=== PATIENT | male | born 1965 | race Caucasian/White ===

== ENCOUNTER 2017-06-07 14:30 | Emergency (ER) | payer MEDICAID, SELFPAY ==
[2017-06-07] VITALS (7 sets, daily range): BP systolic 122–132; BP diastolic 82–96; PULSE 62–86; RESP 13–21; TEMP 37.1; O2SAT 92–96; BMI 36.0
--- NOTE | 2017-06-07 15:15 | EKG12_ITS ---
Test Reason : SEIZURES Blood Pressure : / mmHG Vent. Rate : 071 BPM Atrial Rate : 071 BPM P-R Int : 172 ms QRS Dur : 102 ms QT Int : 410 ms P-R-T Axes : 028 -08 023 degrees QTc Int : 445 ms Normal sinus rhythm Nonspecific T wave abnormality Abnormal ECG Confirmed by NICHOLE BARRERA ([id number]), food editor KENNEDI TAVERAS ([id number]) on 06/11/2017 3:58:56 PM Referred By: CD Confirmed By:NICHOLE BARRERA
--- NOTE | 2017-06-07 15:37 | ED.DCSUM_ITS ---
- ER Visit Summary Date of Service: 06/07/17 Chief Complaint: Seizure History of Present Illness: The patient is a 51 M a history of seizure disorder presenting from his senior care after having multiple seizures this afternoon while at work. He he was walking with staff members when the first 1 started and they were able to lay him down on the ground. He was wearing his helmet at the time and did not suffer any head trauma. The entire event was witnessed. He lost control of his bladder. He did not bite his tongue. No recent infection according to his manager support services. No recent missed medications but he has had multiple recent adjustments and his neurostimulator was just recently adjusted as well. Physical Examination: Is no evidence of head trauma or tongue biting. Neck is supple. He has full range of motion. Heart tones are regular and without murmur. Lungs are clear bilaterally. Abdomen is soft and nontender. No signs of extremity trauma. He is moving all extremities. He is at baseline mental status according to the staff. Test Results: UA is unremarkable. Chest x-ray unremarkable labs are within normal limits. Lamictal level was sent off Emergency Department Course and Treatment: After arrival here, he did have a brief seizure. He was given IV Ativan and it resolved quickly. He remained at baseline mental status throughout the rest of his course. By description from the senior care and staff members at the workshop, it is unclear whether he had multiple back to back seizures or one long seizure. It does not appear that he returned to baseline mental status in between. No recent infection and no evidence of infection now. I discussed the case with Dr. Epps in [place] to review his outpatient records and confirm all of his medications. I observed him here for many hours (6 hours) and he had no recurrence of seizure activity and has remained at baseline mental status. The senior care staff is comfortable taking him home. I discussed the case at length with Dr. Oden was the neurologist councilperson here at [facility]. He states that he would prefer to keep him out of the hospital if at all possible because he will be more prone to infection. The staff is comfortable taking him home but he did recommend loading him with IV Keppra-1 g here. He also recommended increasing his Keppra from 1000 mg in the morning and 1500 mg at night to 1500 mg twice a day. He will follow-up with his treating neurologist on [place] and the staff will bring him back if he has any further seizures this weekend. Treatment Plan: Increase Keppra dose Disposition: Home stable condition Impression: Breakthrough seizure This note was generated with [employer] dictation software. It may contain incorrect words, spelling, and punctuation that were not noted in review of the chart prior to signing ED Disposition - Plan for ED Patient: Chief Complaint: Seizure Referrals: Care Physician,No Primary [NON-STAFF] -
[2017-06-07 15:52] LABS: Absolute Lymphocyte Count 1.74 X10^3/ul (0.83-4.51); Absolute Neutrophil Count 3.2 X10^3/uL (2.0-7.7); Basophil# 0.03 X10^3/uL; Basophil% 0.5 % (0-1); Eosinophil# 0.41 X10^3/uL; Hematocrit 42.3 % (40-54); Hemoglobin 13.7 g/dl (13.0-16.5); Lymphocyte # 1.74 X10^3/ul (4.0); Lymphocyte % 29.7 % (19-41); Mean Corp Hgb Conc 32.4 g/gl (32-36); Mean Corpuscular Hgb 30.7 pg (27.0-32.0); Mean Corpuscular Volume 94.8 fL (80-94); Mean Platelet Vol. 9.1 fl (6.2-12.0); Monocyte# 0.48 X10^3/uL; Monocyte% 8.2 % (0-10); Neutrophil # 3.18 X10^3/uL (2.7-7.7); Neutrophil % 54.4 % (47-70); Platelet Count 204 K/mm3 (150-450); RBC Distribution Width CV 13.2 % (11.6-14.6); RBC Distribution Width SD 43.7 fl (35.1-43.9); Red Blood Count 4.46 M/mm3 (4.6-6.2); White Blood Count 5.9 K/mm3 (4.4-11.0)
[2017-06-07 15:56] LABS: POSITIVE COUNT NO; POSITIVE DIFFERENTIAL NO; POSITIVE MORPHOLOGY NO
--- NOTE | 2017-06-07 15:57 | RAD_ITS ---
STUDY: X-RAY CHEST REASON FOR EXAM: Male, 51 years old. Seizure. TECHNIQUE: Single AP portable view of the chest. COMPARISON: None. FINDINGS: The lungs are clear and expanded. There is no demonstrated pleural abnormality. Borderline cardiomegaly. Normal mediastinum and saritha. Normal visualized pulmonary arteries. Normal visualized aortic arch and descending thoracic aorta. Normal visualized thoracic spine. Normal visualized ribs, clavicles, and shoulders. There is no demonstrated abnormality of the visualized soft tissue structures of the upper abdomen. RAD/Chest 1 View (Portable) IMPRESSION: Borderline cardiomegaly. Negative for major consolidation, focal atelectasis or a substantial pleural effusion. Electronically Signed: Leana Saldivar MD at 16:24 EDT , Service support ,
[2017-06-07] MEDS: LORazepam 2 MG/ML Syringe 1 MG IV (16:18)
[2017-06-07 16:41] LABS: AST(SGOT) 12 U/L (15-37); Alanine Aminotransfer ALT/SGPT 24 U/L (16-61); Albumin, Serum 3.8 g/dL (3.2-5.0); Alkaline Phosphatase 127 U/L (45-117); Anion Gap 8 (5-15); BUN 9 mg/dL (7-18); Chloride 111 mmol/L (98-107); Creatinine, Serum 0.75 mg/dL (0.70-1.30); EST Glomerular Filtration Rate 116 mL/min (>60); Est Glom Filt Rate - Afr Amer 141 mL/min (>60); Estimated Creatinine Clearance 110.17 ml/min; Glucose 107 mg/dL (74-106); Potassium 3.7 mmol/L (3.5-5.1); Protein, Total 7.8 g/dL (6.4-8.2); Sodium Level 143 mmol/L (136-145)
--- NOTE | 2017-06-07 16:45 | ED.RN ---
PT WITH ANOTHER SEIZURE. DR. PALOMARES AT BEDSIDE. ATIVAN ORDERED AND GIVEN. SEIZURE LASTED APPROX. 3-4 MIN. PT O2 SAT MAINTAINED 93-95% PT INCONTINENT. COMPLETE BED CHANGE, AND ATTEND CHANGE. PT NOW POSTICTAL. COVERED WITH CLEAN BLANKETS AND MOVED UP IN BED. 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
[2017-06-07] MEDS: levETIRAcetam IV 1,000 MG/100 ML BAG 400 MG IV (18:07)
[2017-06-07 18:23] LABS: Mucous, Urine 0 SEEN /hpf (<or=2+); Red Blood Cells-Urine 0 SEEN /hpf (0-5); Squamous Epithelial Cells - UA 0 SEEN /hpf (0-5); White Blood Cells 0 SEEN /hpf (0-5)
[2017-06-07 18:28] LABS: Color, Urine Straw (Yellow); Glucose, Dipstick Normal (Normal); Ketone-Dipstick Negative (Negative); Leukocyte Esterase-Dipstick Negative /ul (Negative); Nitrite-Dipstick Negative (Negative); Occult Blood-Urine Negative /ul (Negative); Protein-Dipstick Negative (Negative); Urine Bilirubin Dipstick Negative (Negative); Urine Clarity Cloudy (Clear); Urine Urobilinogen Normal (Normal)
[2017-06-07 19:18] LABS: Amorphous Sediment 3+; Bacteria 2+ /hpf (None Seen)
--- NOTE | 2017-06-07 20:13 | ED.VISSUMM ---
- ER Visit Summary Date of Service: 06/07/17 Chief Complaint: [] History of Present Illness: The patient is a 51 M [] Physical Examination: [] Test Results: [] Emergency Department Course and Treatment: [] Treatment Plan: [] Disposition: [] Impression: [] This note was generated with [employer] software. It may contain incorrect words, spelling, and punctuation that were not noted in review of the chart prior to signing ED Disposition - Plan for ED Patient: Chief Complaint: Seizure Instructions: ED Seizure Recurrent Referrals: Care Physician,No Primary [NON-STAFF] - Additional Instructions: Increase Keppra to 1500mg twice daily
--- NOTE | 2017-06-07 20:16 | ED.DCSUM_ITS ---
- ER Visit Summary Date of Service: 06/07/17 Chief Complaint: [] History of Present Illness: The patient is a 51 M [] Physical Examination: [] Test Results: [] Emergency Department Course and Treatment: [] Treatment Plan: [] Disposition: [] Impression: [] This note was generated with [employer] software. It may contain incorrect words, spelling, and punctuation that were not noted in review of the chart prior to signing ED Disposition - Plan for ED Patient: Chief Complaint: Seizure Instructions: ED Seizure Recurrent Referrals: Care Physician,No Primary [NON-STAFF] - Additional Instructions: Increase Keppra to 1500mg twice daily
[2017-06-10 16:40] LABS: Lamotrigine (Lamictal) Level 15.2 ug/mL (2.0-20.0)
== END 2017-06-07 20:47 | disposition home or self-care (01) ==
PROVIDERS: Emergency Provider Emergency Medicine; Family Provider Internal Medicine Infectious Disease; PCP Internal Medicine Infectious Disease
DX: G40.909 Epilepsy, unspecified, not intractable, without status epilepticus (principal)
CPT/HCPCS: 36415; 71045; 80053; 81001; 82542; 85025; 87086; 93005; 96361; 96365; 96375; 99285; J7030; J7040; A4216